=== PATIENT | male | born 1945 | race Caucasian/White ===

== ENCOUNTER 2018-05-03 10:04 | Emergency (ER) | payer MEDICARE ==
[2018-05-03 10:13] VITALS: BP 126/74
--- NOTE | 2018-05-03 10:35 | EDM.PDOC ---
ED HPI GENERAL MEDICAL PROBLEM - General Chief Complaint: General Stated Complaint: SWOLLEN FACE Time Seen by Provider: 05/03/18 10:16 - History of Present Illness INITIAL COMMENTS - FREE TEXT/NARRATIVE: HISTORY AND PHYSICAL: History of present illness: Patient is a 73-year-old white male presents with a concern of left facial swelling patient states he's had a subcutaneous nodule in his left upper lip for years and now noted a small wound on the inside of his mouth and swelling worse over last several days Review of systems: As per history of present illness and below otherwise all systems reviewed and negative. Past medical history: As per history of present illness and as reviewed below otherwise noncontributory. Surgical history: As per history of present illness and as reviewed below otherwise noncontributory. Social history: No reported history of drug or alcohol abuse. Family history: As per history of present illness and as reviewed below otherwise noncontributory. Physical exam: HEENT: Atraumatic, normocephalic, pupils reactive, negative for conjunctival pallor or scleral icterus, mucous membranes moist, throat clear, neck supple, nontender, trachea midline. Patient has some swelling and a small nodule that is palpable of his left upper lip this is noted to be subcutaneous in the inside there is almost what appears to be an area of drainage. Lungs: Clear to auscultation, breath sounds equal bilaterally, chest nontender. Heart: S1S2, regular, negative for clicks, rubs, or JVD. Abdomen: Soft, nondistended, nontender. Negative for masses or hepatosplenomegaly. Negative for costovertebral tenderness. Pelvis: Stable nontender. Genitourinary: Deferred. Rectal: Deferred. Extremities: Atraumatic, negative for cords or calf pain. Neurovascular unremarkable. Neuro: Awake, alert, oriented. Cranial nerves II through XII unremarkable. Cerebellum unremarkable. Motor and sensory unremarkable throughout. Exam nonfocal. Diagnostics: None Therapeutics: Incision with 11 blade scalpel returned 1-2 mL of dario pus was good hemostasis. Patient tolerated procedure well Impression: #1 intraoral abscess status post incision and drainage Definitive disposition and diagnosis as appropriate pending reevaluation and review of above. - Related Data Allergies Allergy/AdvReac Type Severity Reaction Status Date / Time atenolol Allergy Bradycardia Verified 05/03/18 10:12 Home Meds: Home Meds ALPRAZolam [Alprazolam] 1 tab PO DAILY 10/17/15 [History] Carvedilol 1 tab PO BID 10/17/15 [History] Cyclobenzaprine [Flexeril] 1 tab PO DAILY 10/17/15 [History] Furosemide 1 tab PO DAILY 10/17/15 [History] Glimepiride [Amaryl] 1 tab PO BID 10/17/15 [History] Krill/Om-3/DHA/EPA/Phospho/Ast [Megared [place]-3 Krill Oil Sfgl] 1 tab PO DAILY 10/17/15 [History] Lovastatin 1 tab PO DAILY 10/17/15 [History] Olmesartan Medoxomil [Benicar] 1 tab PO DAILY 10/17/15 [History] PARoxetine HCl [Paxil] 1 tab PO DAILY 10/17/15 [History] amLODIPine [Norvasc] 1 tab PO DAILY 10/17/15 [History] Past Medical History Cardiovascular History: Reports: Blood Clots/VTE/DVT, Hypertension Musculoskeletal History: Reports: Fibromyalgia Psychiatric History: Reports: Anxiety Endocrine/Metabolic History: Reports: Diabetes, Type II - Infectious Disease History Infectious Disease History: Reports: None - Past Surgical History GI Surgical History: Reports: Hernia, Inguinal Neurological Surgical History: Reports: Other (See Below) Musculoskeletal Surgical History: Reports: Other (See Below) Social & Family History - Family History Family Medical History: Noncontributory - Tobacco Use Smoking Status *Q: Current Every Day Smoker Years of Tobacco use: 40 Packs/Tins Daily: 1 - Caffeine Use Caffeine Use: Reports: Coffee - Recreational Drug Use Recreational Drug Use: No ED ROS GENERAL - Review of Systems Review Of Systems: ROS reveals no pertinent complaints other than HPI. ED EXAM, GENERAL - Physical Exam Exam: See Below (See dictation) Course - Vital Signs Text/Narrative:: I discussed with patient at length follow-up and the need for oral pharyngeal screening as appropriate and reevaluation of this subcutaneous nodule that has been there for years without change as well as wound check. Patient is reticent to take antibiotics as prescribed due to robins easier in the past with thrush. I discussed with patient the risks adequate treatment for that and that these would not be broad-spectrum antibiotics and patient does agree to take the prescription and follow-up with his doctor. Patient will also be given oral surgery for reevaluation locally. Last Recorded V/S: Last Vital Signs Temp 36.1 C 05/03/18 10:08 Pulse 57 L 05/03/18 10:08 Resp 18 05/03/18 10:08 BP 126/74 05/03/18 10:08 Pulse Ox 97 05/03/18 10:08 Departure - Departure Time of Disposition: 10:35 Disposition: Home, Self-Care 01 Condition: Good Clinical Impression: Abscess - Discharge Information Referrals: PCP,Not In Area [Primary Care Provider] - Additional Instructions: The following information is given to patients seen in the emergency department who are being discharged to home. This information is to outline your options for follow-up care. We provide all patients seen in our emergency department with a follow-up referral. The need for follow-up, as well as the timing and circumstances, are variable depending upon the specifics of your emergency department visit. If you don't have a primary care physician on staff, we will provide you with a referral. We always advise you to contact your personal physician following an emergency department visit to inform them of the circumstance of the visit and for follow-up with them and/or the need for any referrals to a consulting specialist. The emergency department will also refer you to a specialist when appropriate. This referral assures that you have the opportunity for followup care with a specialist. All of these measure are taken in an effort to provide you with optimal care, which includes your followup. Under all circumstances we always encourage you to contact your private physician who remains a resource for coordinating your care. When calling for followup care, please make the office aware that this follow-up is from your recent emergency room visit. If for any reason you are refused follow-up, please contact the emergency department at and asked to speak to the emergency department charge nurse. Clindamycin as prescribed follow-up private medical doctor in oral surgery as discussed return as needed as discussed Tylenol as directed oral hygiene as discussed
== END 2018-05-03 10:48 | disposition home or self-care (01) ==
LOC: MW.ED 10:04
DX: K12.2 Cellulitis and abscess of mouth (principal); E11.9 Type 2 diabetes mellitus without complications; F41.9 Anxiety disorder, unspecified; F17.210 Nicotine dependence, cigarettes, uncomplicated; Z88.8 Allergy status to other drugs, medicaments and biological substances; Z79.899 Other long term (current) drug therapy; Z79.84 Long term (current) use of oral hypoglycemic drugs
CPT/HCPCS: 99283

== ENCOUNTER 2018-05-08 09:57 | Emergency (ER) | payer MEDICARE ==
[2018-05-08 10:15] VITALS: BP 136/70
--- NOTE | 2018-05-08 10:21 | EDM.PDOC ---
ED HPI GENERAL MEDICAL PROBLEM - General Chief Complaint: Wound Recheck Stated Complaint: ABCESS Time Seen by Provider: 05/08/18 10:15 Source of Information: Reports: Patient History Limitations: Reports: No Limitations - History of Present Illness INITIAL COMMENTS - FREE TEXT/NARRATIVE: HISTORY AND PHYSICAL: History of present illness: Patient is a 73-year-old male presents to the ED today for follow-up from incision and drainage of an intraoral abscess that was performed by Dr. Hines on 05/03/2018. Patient states that since the incision and drainage, that he has felt much better. Patient states the wound has mature the healed up now. He does have follow-up with the dentist in a few weeks from now. He denies any swelling of his face. He denies any fever, chills, nausea, vomiting, difficulties swallowing, abdominal pain, throat pain, headache, while other GI, , respiratory, or cardiovascular symptoms. She does have a history of hypertension but denies any other health history. Review of systems: As per history of present illness and below otherwise all systems reviewed and negative. Past medical history: As per history of present illness and as reviewed below otherwise noncontributory. Surgical history: As per history of present illness and as reviewed below otherwise noncontributory. Social history: No reported history of drug or alcohol abuse. Family history: As per history of present illness and as reviewed below otherwise noncontributory. Physical exam: General: Patient sitting comfortably in no acute distress and nontoxic appearing HEENT: Atraumatic, normocephalic, pupils reactive, negative for conjunctival pallor or scleral icterus, mucous membranes moist, throat clear, neck supple, nontender, trachea midline. No meningeal signs. There is a small pea-sized mobile cyst nodule in the left upper lip that is about 1 cm in size. This cyst is nontender without drainage. Lungs: Clear to auscultation, breath sounds equal bilaterally, chest nontender. Heart: S1S2, regular, negative for clicks, rubs, or overt murmur. Abdomen: Soft, nondistended, nontender. Negative for masses or hepatosplenomegaly. Negative for costovertebral tenderness. No rigidity, rebound , guarding. Pelvis: Stable nontender. Genitourinary: Deferred. Rectal: Deferred. Extremities: Atraumatic, negative for cords or calf pain. Neurovascular unremarkable. Neuro: Awake, alert, oriented. Cranial nerves II through XII unremarkable. Cerebellum unremarkable. Motor and sensory unremarkable throughout. Exam nonfocal. Notes: Per patient, he has had this cyst in his lip for over 10 years. Patient states the area of abscess has drastically improved and is no longer present. Per Dr. Hines's dictation on 05/03/2018, there was an area of drainage coming out of this nodule. There is no evidence of drainage today or any signs of infection or abscess. Discussed the importance for close follow-up with his dentist and primary care provider as he has scheduled. Diagnostics: None Therapeutics: None Prescriptions: None Impression: Wound recheck h/o intraoral abscess Plan: 1. You can continue to alternate ibuprofen or Tylenol as needed for discomfort as directed. 2. Keep your follow-up appointment with your dentist as scheduled and follow-up with the primary care provider as discussed. 3. Return to ED as needed as discussed. Definitive disposition and diagnosis as appropriate pending reevaluation and review of above. - Related Data Allergies Allergy/AdvReac Type Severity Reaction Status Date / Time atenolol Allergy Bradycardia Verified 05/03/18 10:12 Home Meds: Home Meds ALPRAZolam [Alprazolam] 1 tab PO DAILY 10/17/15 [History] Carvedilol 1 tab PO BID 10/17/15 [History] Cyclobenzaprine [Flexeril] 1 tab PO DAILY 10/17/15 [History] Furosemide 1 tab PO DAILY 10/17/15 [History] Glimepiride [Amaryl] 1 tab PO BID 10/17/15 [History] Krill/Om-3/DHA/EPA/Phospho/Ast [Megared [place]-3 Krill Oil Sfgl] 1 tab PO DAILY 10/17/15 [History] Lovastatin 1 tab PO DAILY 10/17/15 [History] Olmesartan Medoxomil [Benicar] 1 tab PO DAILY 10/17/15 [History] PARoxetine HCl [Paxil] 1 tab PO DAILY 10/17/15 [History] amLODIPine [Norvasc] 1 tab PO DAILY 10/17/15 [History] Past Medical History Cardiovascular History: Reports: Blood Clots/VTE/DVT, Hypertension Musculoskeletal History: Reports: Fibromyalgia Psychiatric History: Reports: Anxiety Endocrine/Metabolic History: Reports: Diabetes, Type II - Infectious Disease History Infectious Disease History: Reports: None - Past Surgical History GI Surgical History: Reports: Hernia, Inguinal Neurological Surgical History: Reports: Other (See Below) Musculoskeletal Surgical History: Reports: Other (See Below) Social & Family History - Family History Family Medical History: Noncontributory - Caffeine Use Caffeine Use: Reports: Coffee ED ROS GENERAL - Review of Systems Review Of Systems: ROS reveals no pertinent complaints other than HPI. ED EXAM, SKIN/RASH Exam: See Below (See dictation) Course - Vital Signs Last Recorded V/S: Last Vital Signs Temp 96.1 F 05/08/18 10:13 Pulse 60 05/08/18 10:13 Resp 18 05/08/18 10:13 BP 136/70 05/08/18 10:13 Pulse Ox 95 05/08/18 10:13 Departure - Departure Time of Disposition: 10:24 Disposition: Home, Self-Care 01 Clinical Impression: Encounter for wound re-check - Discharge Information Referrals: PCP,Not In Area [Primary Care Provider] - Forms: ED Department Discharge Additional Instructions: The following information is given to patients seen in the emergency department who are being discharged to home. This information is to outline your options for follow-up care. We provide all patients seen in our emergency department with a follow-up referral. The need for follow-up, as well as the timing and circumstances, are variable depending upon the specifics of your emergency department visit. If you don't have a primary care physician on staff, we will provide you with a referral. We always advise you to contact your personal physician following an emergency department visit to inform them of the circumstance of the visit and for follow-up with them and/or the need for any referrals to a consulting specialist. The emergency department will also refer you to a specialist when appropriate. This referral assures that you have the opportunity for follow-up care with a specialist. All of these measure are taken in an effort to provide you with optimal care, which includes your follow-up. Under all circumstances we always encourage you to contact your private physician who remains a resource for coordinating your care. When calling for follow-up care, please make the office aware that this follow-up is from your recent emergency room visit. If for any reason you are refused follow-up, please contact the [facility] Emergency Department at and asked to speak to the emergency department charge nurse. LON Suarez [facility] [address] [place] [address] [facility] [address] [place] [id number] 1. You can continue to alternate ibuprofen or Tylenol as needed for discomfort as directed. 2. Keep your follow-up appointment with your dentist as scheduled and follow-up with the primary care provider as discussed. 3. Return to ED as needed as discussed.
== END 2018-05-08 10:45 | disposition home or self-care (01) ==
LOC: MW.ED 09:57
DX: Z48.815 Encounter for surgical aftercare following surgery on the digestive system (principal); F41.9 Anxiety disorder, unspecified; I10 Essential (primary) hypertension; Z79.899 Other long term (current) drug therapy
CPT/HCPCS: 99282

== ENCOUNTER 2022-09-18 06:28 | Day surgery (SDC) | payer MEDICARE ==
[~2022-09-18 06:28] MED LIST: Lactated Ringers 1,000 ML IV SCH; Sodium Chloride 0.9% 10 ML Syringe FLUSH PRN; Sodium Chloride 0.9% 2.5 ML Syringe FLUSH PRN; Sodium Chloride 0.9% 20 ML SDV IV PRN; ceFAZolin 2 GM in Sodium Chloride 0.9% 50 ML IV ONE
[2022-09-18] MEDS ORDERED: Dexmedetomidine 200 MCG/2 ML SDV ONE (09:17)
[2022-09-18] MEDS ORDERED: fentaNYL 100 MCG/2 ML SDV ONE (09:18)
[2022-09-18] MEDS ORDERED: Propofol 200 MG/20 ML SDV ONE ×2 (09:20→10:06)
[2022-09-18] MEDS ORDERED: Lidocaine 1% 20 ML MDV ONE (09:21)
[2022-09-18] MEDS ORDERED: Bupivacaine 0.5% 30 ML SDV ONE (09:22)
[2022-09-18] MEDS ORDERED: ceFAZolin 2 GM Vial ONE (09:45)
[2022-09-18] MEDS ORDERED: ePHEDrine 50 MG/ML SDV ONE (10:20)
[2022-09-18 11:31] VITALS: BP 131/70; PULSE 51
== END 2022-09-18 11:38 | disposition home or self-care (01) ==
LOC: MW.SDS 06:28
PROVIDERS: ATTEND Surgery
DX: L72.0 Epidermal cyst (principal); L72.3 Sebaceous cyst; L02.212 Cutaneous abscess of back [any part, except buttock and flank]; E11.9 Type 2 diabetes mellitus without complications; I10 Essential (primary) hypertension; F17.210 Nicotine dependence, cigarettes, uncomplicated; N40.0 Benign prostatic hyperplasia without lower urinary tract symptoms; E78.00 Pure hypercholesterolemia, unspecified; M79.7 Fibromyalgia; F41.9 Anxiety disorder, unspecified; Z86.718 Personal history of other venous thrombosis and embolism; Z79.01 Long term (current) use of anticoagulants; Z88.8 Allergy status to other drugs, medicaments and biological substances; Z79.84 Long term (current) use of oral hypoglycemic drugs; Z79.899 Other long term (current) drug therapy; Z98.890 Other specified postprocedural states; Z79.82 Long term (current) use of aspirin
CPT/HCPCS: 11404; 11422; 88304; J0690; J2704; J3010; J3490; J7120; 00300; 12032; 12041; 99100

== ENCOUNTER 2023-03-07 10:10 | Emergency (ER) | payer MEDICARE ==
[2023-03-07] MEDS ORDERED: Sodium Chloride 0.9% 1,000 ML IV ONE (10:12)
[2023-03-07 10:38] LABS: BASE EXCESS VENOUS 2.5 (-2.0-3.0); BICARBONATE,VENOUS 29 mEq/L (23-28); PCO2 VENOUS 50 mmHG (41-51); PH,VENOUS 7.36 (7.31-7.41)
[2023-03-07 10:39] LABS: BASOPHILS ABSOLUTE AUTO 0.05 K/uL (0.00-0.20); BASOPHILS PERCENT AUTO 0.8 % (0.0-1.0); EOSINOPHILS ABSOLUTE AUTO 0.02 K/uL (0.00-0.45); EOSINOPHILS PERCENT AUTO 0.3 % (0.0-6.0); HEMATOCRIT 30.7 % (42.0-52.0); HEMOGLOBIN 10.4 g/dL (14.0-18.0); IMMATURE GRAN ABSOLUTE AUTO 0.06 K/uL (0.00-0.05); IMMATURE GRAN PERCENT AUTO 0.9 % (0.0-0.4); LYMPHOCYTES ABSOLUTE AUTO 0.77 K/uL (1.00-4.80); LYMPHOCYTES PERCENT AUTO 11.9 % (24.0-44.0); MEAN CORPUSCULAR HEMOGLOBIN 33.3 pg (28.0-32.0); MEAN CORPUSCULAR HGB CONC 33.9 g/dL (32.0-36.0); MEAN CORPUSCULAR VOLUME 98.4 fL (83.0-99.0); MEAN PLATELET VOLUME 10.2 fL (9.4-12.4); MONOCYTES ABSOLUTE AUTO 0.86 K/uL (0.00-0.80); MONOCYTES PERCENT AUTO 13.3 % (0.0-8.0); NEUTROPHILS ABSOLUTE AUTO 4.69 K/uL (1.80-7.70); NEUTROPHILS PERCENT AUTO 72.8 % (41.0-71.0); NRBC ABSOLUTE 0.02 K/uL (0.00-0.02); NRBC PERCENT 0.3 /100WBC (0.0-0.2); PLATELET COUNT,PLT 202 K/uL (150-400); PO2 VENOUS < 30 mmHG; RED BLOOD CELL COUNT 3.12 M/uL (4.52-5.90); WHITE BLOOD CELL COUNT,WBC 6.45 K/uL (3.9-11.3)
[2023-03-07 10:49] LABS: APPEARANCE,URINE CLEAR; BILIRUBIN,URINE NEGATIVE (NEGATIVE); COLOR,URINE YELLOW; GLUCOSE,URINE 250 mg/dL (NEGATIVE); KETONES,URINE NEGATIVE (NEGATIVE); LEUKOCYTE ESTERASE,URINE NEGATIVE (NEGATIVE); NITRITE,URINE NEGATIVE (NEGATIVE); OCCULT BLOOD,URINE NEGATIVE (NEGATIVE); PH,URINE 5.5 (5.0-8.0); PROTEIN,URINE NEGATIVE (NEGATIVE); UROBILINOGEN,URINE 0.2 EU/dL (<2.0)
[2023-03-07 10:58] LABS: D-DIMER QUANTITATIVE 2.42 mg/L FEU (0.00-0.50); INR 1.02 (0.86-1.11); PTT,PARTIAL THROMBOPLSTIN TIME 24.8 SEC (23.9-30.7)
[2023-03-07 11:06] LABS: LACTIC ACID 1.1 mmol/L (0.4-2.0)
[2023-03-07 11:13] LABS: A/G RATIO 0.8 (0.9-1.6); ALBUMIN 2.7 g/dL (3.4-5.0); BILIRUBIN TOTAL 0.3 mg/dL (0.2-1.0); C-REACTIVE PROTEIN 3.71 mg/dL (<0.3); CALCIUM 8.3 mg/dL (8.5-10.1); CARBON DIOXIDE,CO2 27.4 mmol/L (21.0-32.0); CREATININE 1.3 mg/dL (0.8-1.3); EST CRCL DRUG DOSING (CG) 49.74 mL/min; MAGNESIUM 1.7 mg/dL (1.8-2.4); POTASSIUM,K 4.1 mmol/L (3.5-5.1); PROTEIN TOTAL,TP 6.1 g/dL (6.4-8.2); TSH ULTRASENSITIVE 1.25 uIU/mL (0.36-3.74)
[2023-03-07 11:18] LABS: CORONAVIRUS COVID-19 NAA NEGATIVE (NEGATIVE); INFLUENZA A NAA NEGATIVE (NEGATIVE); INFLUENZA B NAA NEGATIVE (NEGATIVE); RESPIRATORY SYNCYTIAL VIR NAA NEGATIVE (NEGATIVE)
[2023-03-07] MEDS ORDERED: Iopamidol 755 MG/ML 500 ML Multipack Bottle IVPUSH ONE (12:00)
[2023-03-07] MEDS: Iopamidol 755 MG/ML 500 ML Multipack Bottle IVPUSH STA ×2 (12:01→14:15)
[2023-03-07 12:41] VITALS: BP 92/64; PULSE 76
[2023-03-07] MEDS ORDERED: Iopamidol 755 MG/ML 500 ML Multipack Bottle IVPUSH STA (14:16)
== END 2023-03-07 12:39 | disposition home or self-care (01) ==
LOC: MW.ED 10:10
DX: T17.890A Other foreign object in other parts of respiratory tract causing asphyxiation, initial encounter (principal); R53.1 Weakness; F17.210 Nicotine dependence, cigarettes, uncomplicated; E78.00 Pure hypercholesterolemia, unspecified; I10 Essential (primary) hypertension; E11.40 Type 2 diabetes mellitus with diabetic neuropathy, unspecified; Z86.73 Personal history of transient ischemic attack (TIA), and cerebral infarction without residual deficits; Z79.82 Long term (current) use of aspirin; Z79.84 Long term (current) use of oral hypoglycemic drugs; Z79.02 Long term (current) use of antithrombotics/antiplatelets; Z79.899 Other long term (current) drug therapy; Z88.8 Allergy status to other drugs, medicaments and biological substances
CPT/HCPCS: 0241U; 36415; 71045; 71275; 80053; 81003; 82803; 82947; 83605; 83690; 83735; 84443; 84484; 85025; 85379; 85610; 85730; 86140; 87040; 93005; 96360; 99285; J7030; Q9967; 93010; 99284